=== PATIENT | male | born 1940 | race Caucasian/White ===

== ENCOUNTER 2017-08-12 09:59 | Observation (INO) | payer MEDICARE ==
[~2017-08-12] VITALS: Ht 188 cm; Wt 65.8 kg
[~2017-08-12 09:59] MED LIST: AMOX-358 PO; APIX5TAB PO; ASPI325T32 PO; BISM262O27 PO; DILT120C82 PO; FERR142T14 PO; FINA5TAB6 PO; GUAI1TBM19 PO; IBUP200C92 PO; LISI1TAB6 PO; LOPE-134 PO; OMEP40CA36 PO; POLY119P5 PO; PRAV40TA2 PO; RANI150T11 PO; RANI150T15 PO; TAMS0.4C2 PO; [UNRECOGNIZED DRUG - CODE] PO; [UNRECOGNIZED DRUG - CODE] PO
[2017-08-12] MEDS ORDERED: NS IV 500 ML 500 ML IV ONE (10:09)
[2017-08-12] MEDS ORDERED: PANTOPRAZOLE INJECTION 200 MG in D5W 100 ML IVPB 50 ML IV SCH (10:15)
[2017-08-12] MEDS ORDERED: PANTOPRAZOLE 40 MG/10 ML (PROTONIX) VIAL IV ONE (10:15)
--- NOTE | 2017-08-12 10:52 | ED GI ---
General Chief Complaint: Abdominal/GI Problems Stated Complaint: VOMITING BLOOD,DIAGNOSED WITH ESOPHAGUS CANCER Source of Information: Patient Exam Limitations: No Limitations History of Present Illness Date Seen by Provider: Aug 12, 2017 Time Seen by Provider: 10:29 Initial Comments Here with report of vomiting blood several times this morning. Just discharged from the hospital yesterday and has diagnosis of esophageal cancer as well as right atrial mass. Apparently started on Eliquis yesterday. Timing/Duration: 12 Hours Severity/Quality: Moderate Location: Epigastric Radiation: No Radiation Activities at Onset: None Modifying Factors: Worsens With Eating Associated Symptoms: No Back Pain, No Chest Pain, No Fever/Chills, Fatigue, Heartburn, Nausea/Vomiting, No Shortness of Air, No Swelling/Mass in Abdomen, No Weakness Allergies and Home Medications Allergies Coded Allergies: No Known Drug Allergies (Unverified , 08/08/17) Home Medications Amoxicillin/Potassium Clav 1 Each Tablet, 1 EACH PO BID, #6 Prescribed by: ESME MANCERA on 08/11/17 1031 Apixaban 5 Mg Tablet, 5 MG PO BID, #60 Prescribed by: ESME MANCERA on 08/11/17 1018 Bismuth Subsalicylate 262 Mg/15 Ml Oral.susp, 30 MG PO PRN PRN for STOMACH UPSET , (Reported) Diltiazem HCl 120 Mg Cap.er.24h, 120 MG PO DAILY, #30 Prescribed by: ESME MANCERA on 08/11/17 1018 Ferrous Sulfate 142 Mg Tablet.er, 142 MG PO DAILY, (Reported) Finasteride 5 Mg Tablet, 5 MG PO DAILY, (Reported) Guaifenesin/Dextromethorphan 1 Each Tbmp.12hr, 1 TAB PO DAILY, (Reported) Ibuprofen 200 Mg Capsule, 200 MG PO BID, (Reported) Loperamide HCl 2 Mg Tablet, 2 MG PO DAILY PRN for DIARRHEA, (Reported) Omeprazole 40 Mg Capsule.dr, 40 MG PO DAILY, (Reported) Phenylephrine/Dm/Acetaminop/GG 1 Each Tablet, 1 TAB PO BID, (Reported) Polyethylene Glycol 3350 119 Gm Powder, 17 GM PO DAILY PRN for CONSTIPATION-2ND LINE, (Reported) Pravastatin Sodium 40 Mg Tablet, 40 MG PO DAILY, (Reported) Ranitidine HCl 150 Mg Tablet, 150 MG PO DAILY, (Reported) Tamsulosin HCl 0.4 Mg Cap.er.24h, 0.4 MG PO DAILY, (Reported) Review of Systems Constitutional: see HPI, No chills, No fever EENTM: No Symptoms Reported Respiratory: No Symptoms Reported Cardiovascular: No Symptoms Reported Gastrointestinal: See HPI, Abdominal Pain, Nausea, Vomiting Genitourinary: No Symptoms Reported Musculoskeletal: no symptoms reported Skin: no symptoms reported Psychiatric/Neurological: No Symptoms Reported All Other Systems Reviewed Negative Unless Noted: Yes Past Alzysvf-Zyaplr-Nxguhl Hx Patient Social History Alcohol Use: Denies Use Recreational Drug Use: No Smoking Status: Current Everyday Smoker Type Used: Cigarettes 2nd Hand Smoke Exposure: Yes Recent Hopitalizations: No Immunizations Up To Date Tetanus Booster (TDap): Unknown Seasonal Allergies Seasonal Allergies: No Surgeries History of Surgeries: Yes (mole removal) Respiratory History of Respiratory Disorde: No Cardiovascular History of Cardiac Disorders: Yes Cardiac Disorders: Hypertension Neurological History of Neurological Disord: No Genitourinary History of Genitourinary Disor: Yes (kidney disease, indwelling catheter. ENLARGED PROSTATE) Genitourinary Disorders: Benign Prostatic Hyperpl Gastrointestinal History of Gastrointestinal Di: Yes Gastrointestinal Disorders: Gastroesophageal Reflux, Hiatal Hernia Musculoskeletal History of Musculoskeletal Dis: No Endocrine History of Endocrine Disorders: No HEENT History of HEENT Disorders: No Cancer History of Cancer: No Psychosocial History of Psychiatric Problem: No Integumentary History of Skin or Integumenta: No Blood Transfusions History of Blood Disorders: No Reviewed Nursing Assessment Reviewed/Agree w Nursing PMH: Yes Family Medical History Significant Family History: No Pertinent Family Hx Family Medial History: Cardiovascular disease 19 FATHER 19 MOTHER Physical Exam Vital Signs Capillary Refill : General Appearance: WD/WN, no apparent distress Neck: full range of motion, supple Respiratory: lungs clear, normal breath sounds Cardiovascular: regular rate, rhythm, no murmur Peripheral Pulses: 2+ Dorsalis Pedis (R), 2+ Left Dors-Pedis (L), 2+ Radial Pulses (R), 2+ Radial Pulses (L) Gastrointestinal: non tender, soft Extremities: non-tender, normal inspection Back: normal inspection, no CVA tenderness, no vertebral tenderness Neurologic/Psychiatric: alert, oriented x 3 Skin: normal color, warm/dry Progress/Results/Core Measures Results/Orders Lab Results Laboratory Tests Test 08/12/17 10:40 Range/Units White Blood Count 8.9 4.3-11.0 10^3/uL Red Blood Count 4.63 4.35-5.85 10^6/uL Hemoglobin 11.5 L 13.3-17.7 G/DL Hematocrit 36 L 40-54 % Mean Corpuscular Volume 77 L 80-99 FL Mean Corpuscular Hemoglobin 25 25-34 PG Mean Corpuscular Hemoglobin Concent 32 32-36 G/DL Red Cell Distribution Width 13.9 10.0-14.5 % Platelet Count 389 130-400 10^3/uL Mean Platelet Volume 9.4 7.4-10.4 FL Neutrophils (%) (Auto) 72 42-75 % Lymphocytes (%) (Auto) 15 12-44 % Monocytes (%) (Auto) 7 0-12 % Eosinophils (%) (Auto) 6 0-10 % Basophils (%) (Auto) 1 0-10 % Neutrophils # (Auto) 6.4 1.8-7.8 X 10^3 Lymphocytes # (Auto) 1.3 1.0-4.0 X 10^3 Monocytes # (Auto) 0.6 0.0-1.0 X 10^3 Eosinophils # (Auto) 0.6 H 0.0-0.3 10^3/uL Basophils # (Auto) 0.1 0.0-0.1 10^3/uL Sodium Level 140 135-145 MMOL/L Potassium Level 5.2 H 3.6-5.0 MMOL/L Chloride Level 107 98-107 MMOL/L Carbon Dioxide Level 24 21-32 MMOL/L Anion Gap 9 5-14 MMOL/L Blood Urea Nitrogen 12 7-18 MG/DL Creatinine 1.41 H 0.60-1.30 MG/DL Estimat Glomerular Filtration Rate 49 BUN/Creatinine Ratio 9 Glucose Level 77 70-105 MG/DL Calcium Level 8.7 8.5-10.1 MG/DL Total Bilirubin 0.4 0.1-1.0 MG/DL Aspartate Amino Transf (AST/SGOT) 12 5-34 U/L Alanine Aminotransferase (ALT/SGPT) 7 0-55 U/L Alkaline Phosphatase 61 40-136 U/L Total Protein 5.8 L 6.4-8.2 GM/DL Albumin 3.1 L 3.2-4.5 GM/DL My Orders Orders - CANDICE HOLLIS MD Cbc With Automated Diff (08/12/17 10:09) Comprehensive Metabolic Panel (08/12/17 10:09) Red Cells Leukocytes Reduced (08/12/17 10:09) Chest 1 View, Ap/Pa Only (08/12/17 10:09) Saline Lock/Iv-Start (08/12/17 10:09) Saline Lock/Iv-Start (08/12/17 10:09) Ns Iv 500 Ml (Sodium Chloride 0.9%) (08/12/17 10:09) Pantoprazole Injection (Protonix Injecti (08/12/17 10:15) D5w 100 Ml Ivpb (De... W/Pantoprazole In (08/12/17 10:15) Type And Screen (08/12/17 10:09) Medications Given in ED Current Medications Medications Dose Ordered Sig/Brent Route Start Time Stop Time Status Last Admin Dose Admin Pantoprazole 80 mg ONCE ONCE IV 08/12/17 10:15 08/12/17 10:16 DC 08/12/17 11:07 80 MG Sodium Chloride 500 ml @ 0 mls/hr Q0M ONCE IV 08/12/17 10:09 08/12/17 10:13 DC 08/12/17 11:07 500 MLS/HR Progress Note : Progress Note Seen and evaluated. IV 2, labs, normal saline 1 L bolus type and cross ordered. Protonix 80 mg IV and 8 mg per hour drip initiated. Monitor patient. No vomiting while in the ER. I did discuss the case with the hospitalist at 1152. 1210: She has seen the patient in the ER and I have discussed the patient with Dr. Faustin. Although he states that there is not much that he can do here, with the patient's bleeding and the fact that he is potentially undertake a flight [place] today or soon to get back home, I do not believe it' s in his best interest to leave until we have a better idea that he has stopped vomiting blood. Dr. Mancera agrees. Patient and family involved in the discussion and they agree and accept observation admission. We will continue Protonix drip and stop the blood thinner. Admit, observation status. Diagnostic Imaging Diagonstic Imaging: Xray Plain Films/CT/US/NM/MRI: chest Comments NAME: DARIUSZ GARCIA MED REC#: [id number] PT STATUS: REG ER : 1940 PHYSICIAN: CANDIEC HOLLIS MD ADMIT DATE: 08/12/17/ER Signed Date of Exam: 08/12/17 CHEST 1 VIEW, AP/PA ONLY INDICATION: History of esophageal cancer, nausea, vomiting COMPARISON: 08/11/17 FINDINGS: Two views of the chest demonstrate persistent but significantly decreased infiltrate in the left base. There is a small effusion present. The right lung is clear. The heart size is stable. There is no pneumothorax. IMPRESSION: 1. Minimal residual infiltrate left lung base with small effusion. 2. No pneumothorax. Dictated by: Dictated on workstation # [id number] Dict: 08/12/17 1050 Trans: 08/12/17 1102 Interpreted by: PLACIDO SMALLS Electronically signed by: PLACIDO SMALLS 08/12/17 1102 Departure Communication (Admissions) Time/Spoke to Admitting Phy: 11:52 Time/Spoke to Consulting Phy: 12:04 Impression Impression: Primary Impression: Upper GI bleed Disposition: ADMITTED INPATIENT Condition: Stable Admissions Decision to Admit Reason: Admit from ER (General) Decision to Admit/Date: Aug 12, 2017 Time/Decision to Admit Time: 11:52 Departure-Patient Inst. Referrals: NO,LOCAL PHYSICIAN (PCP/Family) Primary Care Physician CANDICE HOLLIS MD Aug 12, 2017 10:52
[2017-08-12 10:59] LABS: BASOPHILS # (AUTO) 0.1 10^3/uL (0.0-0.1); BASOPHILS % (AUTO) 1 % (0-10); EOSINOPHILS # (AUTO) 0.6 10^3/uL (0.0-0.3); EOSINOPHILS % (AUTO) 6 % (0-10); HEMATOCRIT 36 % (40-54); HEMOGLOBIN 11.5 G/DL (13.3-17.7); LYMPHOCYTES # (AUTO) 1.3 X 10^3 (1.0-4.0); LYMPHOCYTES % (AUTO) 15 % (12-44); MEAN CORPUSCULAR HEMOGLOBIN 25 PG (25-34); MEAN CORPUSCULAR HGB CONC 32 G/DL (32-36); MEAN CORPUSCULAR VOLUME 77 FL (80-99); MEAN PLATELET VOLUME 9.4 FL (7.4-10.4); MONOCYTES # (AUTO) 0.6 X 10^3 (0.0-1.0); MONOCYTES % (AUTO) 7 % (0-12); NEUTROPHILS # (AUTO) 6.4 X 10^3 (1.8-7.8); NEUTROPHILS % (AUTO) 72 % (42-75); PLATELET COUNT 389 10^3/uL (130-400); RED BLOOD COUNT 4.63 10^6/uL (4.35-5.85); RED CELL DISTRIBUTION WIDTH 13.9 % (10.0-14.5); WHITE BLOOD COUNT 8.9 10^3/uL (4.3-11.0)
[2017-08-12 11:17] LABS: ALBUMIN 3.1 GM/DL (3.2-4.5); BILIRUBIN,TOTAL 0.4 MG/DL (0.1-1.0); CALCIUM 8.7 MG/DL (8.5-10.1); CREATININE SERUM 1.41 MG/DL (0.60-1.30); POTASSIUM 5.2 MMOL/L (3.6-5.0); TOTAL PROTEIN 5.8 GM/DL (6.4-8.2)
--- NOTE | 2017-08-12 13:01 | History & Physical-Hospitalist ---
HPI History of Present Illness: HPI/Chief Complaint Pt is known to me from previous admission. He is a 77yoCM who was recently diagnosed with esophageal adenocarcinoma after EGD and biopsy and atrial fibrillation earlier this week after syncopal episode. He was doing well and was discharge afternoon in order to catch a flight early Tuesday [place] get [place] to [place] further management and treatment. Overnight he started to vomit dark red blood. It become more brown in color and but was continuing so he decided to seek evaluation before flying out. He was found to have a stable hgb (up from discharge) and was placed on protonic gtt. He denied any abd pain, chest pain, SOB, or syncope/presyncope. He, his sister, Ekta, and I had a long discussion about discharge back to board flight (which had been pushed back) vs admitted for observation and delaying flight until tomorrow. He elected to stay overnight and DC in AM for flight if stable. Source: patient, family Exam Limitations: no limitations Date Seen 08/12/17 Time Seen by Provider: 12:00 Attending Physician Esme Mancera MD PCP No,Local Physician Referring Physician Date of Admission Aug 12, 2017 at 12:40 Home Medications & Allergies Home Medications Reviewed patient Home Medication Reconciliation Form Allergies Allergies Coded Allergies No Known Drug Allergies (Unverified08/08/17) Past Swbqrtc-Wwwmvu-Pamout Hx Patient Social History Alcohol Use: Denies Use Recreational Drug Use: No Smoking Status: Current Everyday Smoker Type Used: Cigarettes 2nd Hand Smoke Exposure: Yes Recent Hopitalizations: No Immunizations Up To Date Tetanus Booster (TDap): Unknown Seasonal Allergies Seasonal Allergies: No Surgeries Yes (mole removal) Respiratory No Cardiovascular Yes Hypertension Neurological No Genitourinary Yes (kidney disease, indwelling catheter. ENLARGED PROSTATE) Benign Prostatic Hyperpl Gastrointestinal Yes Gastroesophageal Reflux, Hiatal Hernia Musculoskeletal No Endocrine History of Endocrine Disorders: No HEENT History of HEENT Disorders: No Cancer Yes Esophageal Psychosocial History of Psychiatric Problem: No Integumentary History of Skin or Integumenta: No Blood Transfusions History of Blood Disorders: No Reviewed Nursing Assessment Reviewed/Agree w Nursing PMH: Yes Family Medical History Significant Family History: No Pertinent Family Hx Family Hx: Cardiovascular disease 19 FATHER 19 MOTHER Review of Systems Constitutional: No chills, No weakness, weight loss EENTM: No blurred vision, No double vision Respiratory: No dyspnea on exertion, No short of breath Cardiovascular: No chest pain, No palpitations Gastrointestinal: No abdominal pain, No constipation, No diarrhea, hematemesis , loss of appetite, No nausea, No vomiting Genitourinary: no symptoms reported, No dysuria, other (chronic indwelling tilley) Musculoskeletal: no symptoms reported Skin: no symptoms reported Psychiatric/Neurological: No Symptoms Reported Physical Exam Physical Exam Vital Signs Vital Signs - First Documented 08/12/17 10:00 Temp 98.5 Pulse 70 Resp 16 B/P (MAP) 154/90 (111) Pulse Ox 95 O2 Delivery Room Air Capillary Refill : General Appearance: No Apparent Distress, Chronically ill HEENT: PERRL/EOMI, No Scleral Icterus (L), No Scleral Icterus (R) Neck: Non Tender, Supple Respiratory: Lungs Clear, No Respiratory Distress Cardiovascular: Regular Rate, Rhythm, No Murmur Gastrointestinal: Normal Bowel Sounds, Non Tender, Soft Extremity: Normal Capillary Refill, No Calf Tenderness, No Pedal Edema Neurologic/Psychiatric: Alert, Oriented x3, Normal Mood/Affect Skin: Normal Color, Warm/Dry Results Results/Procedures Lab Laboratory Tests 08/12/17 10:40 08/13/17 04:57 Assessment/Plan Admission Diagnosis hematemesis Diagnosis/Problems Diagnosis/Problems (1) Upper GI bleed Assessment & Plan: Hgb up from yesterday Discussed options with sister and patient and importance of returning to [place] for definitive treatment and evaluation Ultimately will obs overnight o ensure hgb stable and plan to DC tomorrow AM for flight home On Protonix gtt Continue ranitidine and will start carafate Consult Dr Faustin, appreciate recs (2) Esophageal adenocarcinoma Assessment & Plan: Prelim path shows poorly differentiated adenocarcinoma Has appointment next week with [facility] (3) Atrial fibrillation Assessment & Plan: Was on Eliquis for stroke ppx Discussed risks and benefits, given new onset hematemesis will DC Qualifiers: Qualified Codes: I48.0 - Paroxysmal atrial fibrillation (4) Prophylactic measure Assessment & Plan: SCDs Full Liquids with Boost ESME MANCERA MD Aug 12, 2017 13:01
[2017-08-12 13:35] VITALS: BP 153/86
[2017-08-12] MEDS ORDERED: ONDANSETRON 4 MG/2 ML (SDV) Z0FRAN IV PRN (13:45)
[2017-08-12] MEDS ORDERED: ANTACID SUSP 30 ML UDC (MYLANTA) PO PRN (13:45)
[2017-08-12] MEDS ORDERED: MILK OF MAGNESIA 400 MG/5 ML 30 ML UDC PO PRN (13:45)
[2017-08-12] MEDS ORDERED: RT-ALBUTEROL SULF 2.5 MG/3 ML PRE-MIX VIAL INH PRN (13:45)
[2017-08-12] MEDS ORDERED: ACETAMINOPHEN 325 MG TABLET/CAPLET (TYLENOL) PO PRN (13:45)
[2017-08-12] MEDS ORDERED: MELATONIN 3 MG TABLET PO PRN (13:45)
[2017-08-12] MEDS ORDERED: PATIENT MAY USE OWN MEDS, ALL MC SCH (13:45)
[2017-08-12] MEDS ORDERED: INFLUENZA TRIvalent 2017-2018 0.5 ML/45 MCG SYR IM ONE (14:00)
[2017-08-12] MEDS ORDERED: PIPERACILLIN SODIUM/TAZOBACTAM 4.5 GM in NS (IVPB) 100 ML IV NR (14:15)
[2017-08-12] MEDS ORDERED: PIPERACILLIN SODIUM/TAZOBACTAM 4.5 GM in NS (IVPB) 100 ML IV SCH ×2 (14:15→20:00)
--- NOTE | 2017-08-12 14:45 | ST Dysphagia Evaluation ---
Speech Evaluation-General Medical Diagnosis GI Bleed (Esophageal Adenocarcinoma) Onset Date: Aug 12, 2017 Therapy Diagnosis Therapy Diagnosis: Mild Pharyngeal Dysphagia/Suspected Esophageal Dysphagia Precautions Precautions: Aspiration Precautions/Isolations: Fall Prevention, Standard Precautions Referral Referring Physician: Dr. Aileen Mancera Reason for Referral: Evaluation/Treatment Clinical Bedside Swallowing Evaluation Medical History Pertinent Medical History: GERD, HTN, Smoking Esophageal Adenocarcinoma Current History The patient was recently discharged from [facility] following identification of esophageal adenocarcinoma. The patient presented to the ER on this date secondary to vomiting of blood. Reviewed History: Yes Speech PLF/Current-Dysphagia Prior Level of Function At discharge, the patient was consuming a regular diet with thin liquids. Per patient, he does not choke on any consistency he consumes, however, intermittently food and liquids will reach the mid-esophageal region and "come right back up." The patient participated in a modified barium swallow on 08/10/2017. With large gulps of thin liquid and nectar-thick liquid, aspiration was observed. With small, single sips of thin liquid and nectar-thick liquid aspiration was eliminated. Subjective The patient was seated upright in bed upon entrance. The patient greeted the clinician and was agreeable to participation in the dysphagia evaluation. The patient recently consumed macaroni and cheese, as well as, hot chocolate. Per patient, "all that stuff went down fine." The patient is currently receiving a mechanically altered/advanced diet per recommendation of physician secondary to the presence of a suspected GI bleed and the known information of an esophageal mass. Cognitive Status Patient Orientation: Person, Place, Time, Situation Oral Motor Skills Dentition: Edentalous Current Food Consistancy: Mechanical Soft, Thin Liquids Ability to Follow Directions: Excellent Oral Expression Ability: No Impairment Voice Voice Phonatory-Based Quality: Glottal [place] Voice Pitch: Normal Voice Loudness: Normal Face Facial Symmetry: Symmetrical Oral-Facial Assessment Oral-Facial Dentition: Normal Labial Seal Description: Normal Smile: Normal Puff Cheeks: Normal Lingual Protrusion: Normal Lingual ROM: Normal Lingual Strength: Normal Pharynx Velopharyngeal Move.: Normal Volitional Dry Swallow: Yes Voluntary Cough: Yes Can Clear Throat Volitionally: Yes Productive Cough: Yes Productive Throat Clear: Yes Dysphagia Evaluation Consistencies Presented: Regular, Thin Liquid, Pureed - No oral impairments were noted throughout the evaluation. Slightly increased mastication time of the saltine cracker was noted secondary to the patient's edentulous state. - No visible pharyngeal deficits were noted throughout the evaluation. Due to the clinician's knowledge of the patient's recent modified barium swallow, it is known the patient demonstrates slightly reduced base of tongue retraction and mildly reduced pharyngeal contraction. - To note, the patient demonstrates a throat clear and intermittent cough at baseline, prior to administration of bolus material. - Thin Liquid (small, single sips through documented recommendation of the patient's most recent video swallow): No signs/symptoms of aspiration were demonstrated with small, single sips of thin liquid. - Puree, Solid Consistency: No signs/symptoms of aspiration were demonstrated following multiple boluses of puree or solid consistency. Dietary Recommendations: Mechanical Soft (In correlation to physician recommendation. Upgrade request deferred to physician.) Liquid Recommendations: Thin Crush medication and place in puree for ease of administration, as well as, clearance of the documented esophageal mass. Swallowing Precautions: No Straw, Small Bites and Sips, Sitting 90 Degrees 30 Post Intake Dysphagia Evaluation Summary Due to prior knowledge of the patient's modified barium swallow results, the patient presents with mild pharyngeal dysphagia and suspected esophageal dysphagia. The patient's pharyngeal dysphagia is characterized by reduced base of tongue retraction, decreased pharyngeal contraction, and a delayed pharyngeal onset response. In addition, the modified barium swallow demonstrated aspiration of thin liquid (silent) with large gulps of thin liquid. Due to this, the patient should consume small, single sips of thin liquid, only. Speech-Plan Treatment Plan Speech Therapy Treatment Plan: Discontinue ST Evaluation, only. Frequency: 1 time per week Estimated Hrs Per Day: Other Rehab Potential: Poor Safety Risks/Education Teaching Recipient: Patient Teaching Methods: Discussion Response to Teaching: Verbalize Understanding, Reinforcement Needed Education Topics Provided: Results, Recommendations, Plan of Care, Signs/Symptoms of Aspiration Time Speech Therapy Time In: 14:25 Speech Therapy Time Out: 14:40 Total Billed Time: 15 Billed Treatment Time 1, DYSEVS Speech GCodes Complexity Level Test(s)/Tool Used to Determine: Level of Assistance Scale Functional Limitation-Current Current: SWALCJORGE A Modifier: CJ Functional Limitation-Goal Goal: SWALGOAL Modifier: DAMARI Functional Limitation-D/C Discharge: [facility] Modifier: MARINA ANDRE Aug 12, 2017 14:45
[2017-08-12] MEDS: ENOXAPARIN 60 MG/0.6 ML (LOVENOX) SYR SC SCH (15:30)
[2017-08-12] MEDS: SUCRALFATE 1 GM (CARAFATE) TAB PO SCH ×2 (15:30→20:13)
[2017-08-12] MEDS: NS IV 1000 ML 1,000 ML IV SCH ×2 (15:38→23:49)
[2017-08-12 16:00] VITALS: BP 129/79
[2017-08-12] MEDS ORDERED: PANTOPRAZOLE 40 MG (PROTONIX) TAB PO SCH (17:00)
[2017-08-12] MEDS ORDERED: TAMSULOSIN 0.4 MG (FLOMAX) CAP PO SCH (18:00)
[2017-08-12 19:46] VITALS: BP 123/63
[2017-08-12] MEDS ORDERED: RT-ADVAIR HFA 115/21 MCG PER PUFF IH SCH (20:00)
[2017-08-12] MEDS: AUGMENTIN 875 MG TAB (AMOXICILLIN/CLAVULANATE) PO SCH (20:13)
[2017-08-12] MEDS ORDERED: SIMvastatin 20 MG (ZOCOR) TAB PO SCH (21:00)
[2017-08-13 00:40] VITALS: BP 111/67
[2017-08-13] MEDS: ENOXAPARIN 60 MG/0.6 ML (LOVENOX) SYR SC SCH (02:11)
[2017-08-13 04:00] VITALS: BP 130/80
[2017-08-13 05:37] LABS: BASOPHILS # (AUTO) 0.1 10^3/uL (0.0-0.1); BASOPHILS % (AUTO) 1 % (0-10); EOSINOPHILS # (AUTO) 0.7 10^3/uL (0.0-0.3); EOSINOPHILS % (AUTO) 10 % (0-10); HEMATOCRIT 31 % (40-54); HEMOGLOBIN 9.9 G/DL (13.3-17.7); LYMPHOCYTES # (AUTO) 1.8 X 10^3 (1.0-4.0); LYMPHOCYTES % (AUTO) 24 % (12-44); MEAN CORPUSCULAR HEMOGLOBIN 25 PG (25-34); MEAN CORPUSCULAR HGB CONC 32 G/DL (32-36); MEAN CORPUSCULAR VOLUME 77 FL (80-99); MEAN PLATELET VOLUME 9.3 FL (7.4-10.4); MONOCYTES # (AUTO) 0.6 X 10^3 (0.0-1.0); MONOCYTES % (AUTO) 8 % (0-12); NEUTROPHILS # (AUTO) 4.2 X 10^3 (1.8-7.8); NEUTROPHILS % (AUTO) 57 % (42-75); PLATELET COUNT 299 10^3/uL (130-400); RED BLOOD COUNT 4.01 10^6/uL (4.35-5.85); RED CELL DISTRIBUTION WIDTH 13.8 % (10.0-14.5); WHITE BLOOD COUNT 7.5 10^3/uL (4.3-11.0)
[2017-08-13] MEDS: SUCRALFATE 1 GM (CARAFATE) TAB PO SCH (05:56)
[2017-08-13 06:01] LABS: BUN/CREATININE RATIO 9; CALCIUM 7.9 MG/DL (8.5-10.1); CARBON DIOXIDE 18 MMOL/L (21-32); CHLORIDE 111 MMOL/L (98-107); GFR ESTIMATED > 60; GLUCOSE 67 MG/DL (70-105); POTASSIUM 4.3 MMOL/L (3.6-5.0); SODIUM 136 MMOL/L (135-145)
[2017-08-13] MEDS ORDERED: PANTOPRAZOLE 40 MG (PROTONIX) TAB PO SCH (07:00)
[2017-08-13] MEDS ORDERED: SUCR1TAB PO (07:02)
--- NOTE | 2017-08-13 07:16 | Discharge Summary-Hospitalist ---
Diagnosis/Chief Complaint Date of Admission Aug 12, 2017 at 12:40 Date of Discharge Discharge Date: Aug 13, 2017 Admission Diagnosis hematemesis Discharge Diagnosis (1) Upper GI bleed Assessment & Plan: Hgb down but still higher than 2 days ago at discharge Discussed options with sister and patient and importance of returning to Check for definitive treatment and evaluation On Protonix gtt Continue ranitidine and carafate Consult Dr Faustin, appreciate recs (2) Esophageal adenocarcinoma Assessment & Plan: Prelim path shows poorly differentiated adenocarcinoma Has appointment next week with [facility] (3) Atrial fibrillation Assessment & Plan: Was on Eliquis for stroke ppx Discussed risks and benefits, given new onset hematemesis will DC (4) Prophylactic measure Assessment & Plan: SCDs Full Liquids with Boost Discharge Summary Consultations Dr Faustin Discharge Physical Examination Allergies: Coded Allergies: No Known Drug Allergies (Unverified , 08/08/17) Vitals & I&Os Vital Signs Date Time Temp Pulse Resp B/P (MAP) Pulse Ox O2 Delivery O2 Flow Rate FiO2 08/13/17 10:56 08/13/17 08:47 Room Air 08/13/17 08:30 97.7 76 20 96 Hospital Course Pt was admitted for hematemesis following EGD and biopsy of esophageal mass. He as hemodynamically stable on presentation but given history was admitted for observation. Upon discussion with patient he was unaware his paperwork had a back page and was not taking all of his medicines (most notably his PPI or H2 [place]). He has started his eliquis though. After long discussion about risks and benefits of anticoagulation and travel he has elected to discontinue Eliquis until further evaluation can be done and get on flight for his hometown where we have facilitate an appointment early next week at their cancer center. I was very ray with both he and his sister that while he is currently stable and there is no foreseeable risk of his decompensation given his underlying medial problems that risk is still present. They expressed understanding of this and again elected DC today to board flight to return to his hometown in [place]. I went over his medication with him again at discharge to make sure he understood his regimen and he was able to repeat back to me what he needed to take. Informed his sister and him that if his bleeding return he should seek evaluation in the nearest emergency room. Labs (last 24 hrs) Laboratory Tests 08/13/17 04:57: White Blood Count 7.5, Red Blood Count 4.01L, Hemoglobin 9.9L, Hematocrit 31L, Mean Corpuscular Volume 77L, Mean Corpuscular Hemoglobin 25, Mean Corpuscular Hemoglobin Concent 32, Red Cell Distribution Width 13.8, Platelet Count 299, Mean Platelet Volume 9.3, Neutrophils (%) (Auto) 57, Lymphocytes (%) (Auto) 24, Monocytes (%) (Auto) 8, Eosinophils (%) (Auto) 10, Basophils (%) (Auto) 1, Neutrophils # (Auto) 4.2, Lymphocytes # (Auto) 1.8, Monocytes # (Auto) 0.6, Eosinophils # (Auto) 0.7H, Basophils # (Auto) 0.1, Sodium Level 136, Potassium Level 4.3, Chloride Level 111H, Carbon Dioxide Level 18L, Anion Gap 7, Blood Urea Nitrogen 10, Creatinine 1.10, Estimat Glomerular Filtration Rate > 60, BUN/ Creatinine Ratio 9, Glucose Level 67L, Calcium Level 7.9L Pending Labs Laboratory Tests 08/13/17 04:57: White Blood Count 7.5, Red Blood Count 4.01, Hemoglobin 9.9, Hematocrit 31, Mean Corpuscular Volume 77, Mean Corpuscular Hemoglobin 25, Mean Corpuscular Hemoglobin Concent 32, Red Cell Distribution Width 13.8, Platelet Count 299, Mean Platelet Volume 9.3, Neutrophils (%) (Auto) 57, Lymphocytes (%) (Auto) 24, Monocytes (%) (Auto) 8, Eosinophils (%) (Auto) 10, Basophils (%) (Auto) 1, Neutrophils # (Auto) 4.2, Lymphocytes # (Auto) 1.8, Monocytes # (Auto) 0.6, Eosinophils # (Auto) 0.7, Basophils # (Auto) 0.1, Sodium Level 136, Potassium Level 4.3, Chloride Level 111, Carbon Dioxide Level 18, Anion Gap 7, Blood Urea Nitrogen 10, Creatinine 1.10, Estimat Glomerular Filtration Rate > 60, BUN/ Creatinine Ratio 9, Glucose Level 67, Calcium Level 7.9 Discharge Home Medications: Active Scripts Active Sucralfate 1 Gm Tablet 1 Gm PO ACHS Augmentin 875-125 Tablet (Amoxicillin/Potassium Clav) 1 Each Tablet 1 Each PO BID Cardizem Cd (Diltiazem HCl) 120 Mg Cap.er.24h 120 Mg PO DAILY Reported Miralax (Polyethylene Glycol 3350) 119 Gm Powder 17 Gm PO DAILY PRN Pepto-Bismol (Bismuth Subsalicylate) 262 Mg/15 Ml Oral.susp 30 Mg PO PRN PRN Pravastatin Sodium 40 Mg Tablet 40 Mg PO DAILY Tamsulosin HCl 0.4 Mg Cap.er.24h 0.4 Mg PO DAILY Omeprazole 40 Mg Capsule.dr 40 Mg PO DAILY Finasteride 5 Mg Tablet 5 Mg PO DAILY Imodium A-D (Loperamide HCl) 2 Mg Tablet 2 Mg PO DAILY PRN Mucinex Dm ER 1,200-60 mg Tab (Guaifenesin/Dextromethorphan) 1 Each Tbmp.12hr 1 Tab PO DAILY Slow Fe (Ferrous Sulfate) 142 Mg Tablet.er 142 Mg PO DAILY Zantac (Ranitidine HCl) 150 Mg Tablet 150 Mg PO DAILY Vicks Dayquil Severe Cold-Flu (Phenylephrine/Dm/Acetaminop/GG) 1 Each Tablet 1 Tab PO BID Instructions to patient/family Please see electronic discharge instructions given to patient. Clinical Quality Measures DVT/VTE Risk/Contraindication: Risk Factor Score Per Nursin RFS Level Per Nursing on Admit: 2=Moderate Problem Qualifiers (1) Atrial fibrillation: Atrial fibrillation type: paroxysmal Qualified Codes: I48.0 - Paroxysmal atrial fibrillation ESME COLBY MD Aug 13, 2017 07:16
[2017-08-13] MEDS: AUGMENTIN 875 MG TAB (AMOXICILLIN/CLAVULANATE) PO SCH (08:07)
[2017-08-13 08:30] VITALS: BP 114/77
[2017-08-13] MEDS ORDERED: TAMSULOSIN 0.4 MG (FLOMAX) CAP PO SCH (09:00)
[2017-08-13] MEDS ORDERED: SIMvastatin 20 MG (ZOCOR) TAB PO SCH (09:00)
[2017-08-13] MEDS ORDERED: FAMOTIDINE 20 MG (PEPCID) TABLET PO SCH (09:00)
[2017-08-13] MEDS ORDERED: FINASTERIDE (PROSCAR) 5 MG TAB PO SCH ×2 (09:00)
[2017-08-13] MEDS ORDERED: NICOTINE 21 MG (NICODERM) PATCH TD SCH (09:00)
[2017-08-13] MEDS ORDERED: DILTIAZEM 120 MG (CARDIZEM CD) CAP PO SCH (09:00)
[2017-08-14] MEDS ORDERED: NICOTINE PATCH REMOVAL TP SCH (09:00)
== END 2017-08-13 08:49 | disposition home or self-care (01) ==
LOC: EDUNIT# 09:59 → ER 10:01 → 4TH 12:40 → UNDOADMOB 12:40 → 4TH 13:33 → UNDODISOB 08-13 11:30
PROVIDERS: ADMIT Family Medicine; ATTEND Family Medicine
DX: K92.2 Gastrointestinal hemorrhage, unspecified (principal); C15.5 Malignant neoplasm of lower third of esophagus; I48.0 Paroxysmal atrial fibrillation; I10 Essential (primary) hypertension; N40.0 Benign prostatic hyperplasia without lower urinary tract symptoms; K21.9 Gastro-esophageal reflux disease without esophagitis; K44.9 Diaphragmatic hernia without obstruction or gangrene
CPT/HCPCS: 36415; 71045; 80048; 80053; 85025; 86850; 86900; 86901; 86920; 94640; 94664; 94760; 96361; 96365; 96366; 96375